=== PATIENT | female | born 1990 | race American Indian/Alaskan Native ===

== ENCOUNTER 2017-01-26 09:51 | Outpatient (CLI) | payer MEDICAID ==
[2017-01-26] MEDS ORDERED: LACTATED RINGERS 500 ML IV ONE (10:33)
[2017-01-26 10:47] LABS: Bacteria,Urine 1+ /HPF (Negative); Bilirubin,Urine NEG (Negative); Blood,Urine NEG (Negative); Ketones,Urine NEG (Negative); Leukocyte Esterase,Urine LG (Negative); Mucus,Urine 1+ /HPF; Nitrite,Urine NEG (Negative); Urobilinogen,Urine < 2.0 mg/dL (<2.0)
[2017-01-26 10:58] VITALS: BP 110/56
[2017-01-26] MEDS ORDERED: ROCEPHIN IM ONE (12:00)
[2017-01-26] MEDS ORDERED: XYLOCAINE 1% 20 mL INFILTRATI ONE (12:00)
== END 2017-01-26 12:20 | disposition home or self-care (01) ==
LOC: TRG 09:51
PROVIDERS: ATTEND Obstetrics & Gynecology
DX: O47.02 False labor before 37 completed weeks of gestation, second trimester (principal); Z3A.26 26 weeks gestation of pregnancy
CPT/HCPCS: 59025; 81001; J0696

== ENCOUNTER 2017-04-17 23:25 | Outpatient (CLI) | payer MEDICAID | END 2017-04-18 00:50 | disposition home or self-care (01) | LOC: TRG 23:25 | PROVIDERS: ATTEND Obstetrics & Gynecology | DX: O47.1 False labor at or after 37 completed weeks of gestation (principal); Z3A.38 38 weeks gestation of pregnancy ==

== ENCOUNTER 2017-04-29 10:27 | Inpatient (IN) | payer MEDICAID ==
[2017-04-29] MEDS ORDERED: MINERAL OIL PO PRN (10:51)
[2017-04-29] MEDS ORDERED: XYLOCAINE 2% INFILTRATI ONE (10:51)
[2017-04-29] MEDS ORDERED: SUBLIMAZE IV PRN (10:51)
[2017-04-29] MEDS ORDERED: STADOL IV PRN (10:51)
[2017-04-29] MEDS ORDERED: NARCAN 0.4 MG/1 ML IV PRN (10:51)
[2017-04-29] MEDS ORDERED: BRETHINE IVP PRN (10:51)
[2017-04-29] MEDS ORDERED: ePHEDrine SULFATE IV PRN (10:51)
[2017-04-29] MEDS ORDERED: ZOFRAN IV PRN (10:51)
[2017-04-29] MEDS ORDERED: BRETHINE SUB-Q PRN (10:51)
[2017-04-29] MEDS ORDERED: PITOCin/NS 30 UNIT/500ML 30 UNITS/500 ML BAG IV SCH (11:00)
[2017-04-29] MEDS ORDERED: LACTATED RINGERS 1,000 ML IV SCH (11:00)
[2017-04-29] MEDS ORDERED: PITOCin/NS 20 UNIT/1000ML DRIP 20 UNITS/1,000 ML BAG IV SCH (11:00)
[2017-04-29 12:24] LABS: Hematocrit 33.1 % (30.3-42.9); Hemoglobin 10.3 gm/dl (10.1-14.3); Mean Corpuscular HGB Conc 31 % (30-34); Platelet Count 325 K/mm3 (140-440); Red Blood Count 4.86 M/mm3 (3.65-5.03); Red Cell Distribution Width 16.7 % (13.2-15.2)
[2017-04-29 12:27] LABS: Mean Corpuscular Hemoglobin 21 pg (28-32); Mean Corpuscular Volume 68 fl (79-97)
--- NOTE | 2017-04-29 14:49 | History and Physical Report ---
History of Present Illness Date of examination: 04/29/17 Date of admission: 04/29/17 10:27 History of present illness: 26 yo LMP EDC 05/01/17 @ 39.5 weeks gestation presented to office this am 4.5cm with LOF-clear that occurred prior to visit. Also reported decreased FM. Denied VB. First trimester entry into care at 6 weeks gestation. course complicated by morbid obesity with early GCT of 118 and APA comang't. for same. She is GBS negative. There is a prior history of SIDS 2012-3 months post delivery. 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: abnormal PAP smear Family/Genetic History: none Social history: no significant social history, single - Obstetrical History Expected Date of Delivery: 05/01/17 Actual Gestation: 39 Week(s) 5 Day(s) : 3 Para: 0 Hx # Term Pregnancies: 1 (SIDS ) Number of Pregnancies: 0 Spontaneous Abortions: 1 Induced : 0 Number of Living Children: 0 Medications and Allergies Allergies Allergy/AdvReac Type Severity Reaction Status Date / Time No Known Allergies Allergy Verified 07/06/15 09:43 Home Medications Medication Instructions Recorded Confirmed Last Taken Type Ibuprofen [Motrin 800 MG tab] 800 mg PO Q8HR PRN #30 tablet 12/03/15 04/29/17 Unknown Rx Nitrofurantoin [place]/M-[place]ryst 100 mg PO Q12HR #14 capsule 01/26/17 04/29/17 Unknown Rx [Macrobid CAP] Multivitamin Tablet 1 tab PO QDAY 04/29/17 04/29/17 04/28/17 21:00 History 1 Active Meds: Active Medications Butorphanol Tartrate (Stadol) 2 mg IV Q2H PRN PRN Reason: Pain , Severe (7-10) Ephedrine Sulfate (Ephedrine Sulfate) 10 mg IV Q2M PRN PRN Reason: Hypotension Fentanyl (Sublimaze) 100 mcg IV Q2H PRN PRN Reason: Labor Pain Lactated Ringer's (Lactated Ringers) 1,000 mls @ 125 mls/hr IV DIRECT JOSE Last Admin: 04/29/17 12:31 Dose: 125 mls/hr Oxytocin/Sodium Chloride (Pitocin/Ns 20 Unit/1000ml Drip) 20 units in 1,000 mls @ 125 mls/hr IV DIRECT JOSE Oxytocin/Sodium Chloride (Pitocin/Ns 30 Unit/500ml) 30 units in 500 mls @ 4 mls /hr IV TITR JOSE PRN Reason: Protocol Last Titration: 04/29/17 13:15 Dose: 16 mls/hr, 16 mls/hr Mineral Oil (Mineral Oil) 30 ml PO QHS PRN PRN Reason: Constipation Naloxone HCl (Narcan 0.4 Mg/1 Ml) 0.1 mg IV Q2MIN PRN PRN Reason: Res Rate </= 8 or 02 SAT < 92% Ondansetron HCl (Zofran) 4 mg IV Q8H PRN PRN Reason: Nausea And Vomiting Terbutaline Sulfate (Brethine) 0.25 mg SUB-Q ONCE PRN PRN Reason: Hyperstimulation/Hypertonicity Terbutaline Sulfate (Brethine) 0.25 mg IVP ONCE PRN PRN Reason: Hyperstimulation/Hypertonicity Review of Systems All systems: negative (decreased mov't) Genitourinary: leakage of fluid, contractions, no genital sores - Vital Signs Vital signs: Vital Signs Pulse BP 107 H 142/61 04/29/17 11:23 04/29/17 11:23 Temp Pulse Resp BP Pulse Ox 97.4 F L 107 H 18 142/61 04/29/17 11:29 04/29/17 11:29 04/29/17 11:29 04/29/17 11:29 - Physical Exam Genitourinary (Female): Positive: normal external genitalia, normal perenium. Negative: perineal/vulvar lesions - Obstetrical FHR: category 1 Uterine Contraction Monitor Mode: External Cervical Dilatation: 4.5 Cervical Effacement Percentage: 70 station: -2 Uterine Contraction Duration: 2 Uterine Contraction Pattern: Regular Uterine Tone Measurement Phase: Resting Uterine Contraction Intensity: Strong/Firm Results Result Diagrams: 04/29/17 12:09 Abnormal lab results 04/29/17 Range/Units 12:09 MCV 68 L (79-97) fl MCH 21 L (28-32) pg RDW 16.7 H (13.2-15.2) % All other labs normal. Assessment and Plan A: IUP at term Active Labor History of previous SIDS P: Pitocin augmentation
--- NOTE | 2017-04-29 14:57 | Procedure Note ---
OB Delivery Note - Delivery Date of Delivery: 04/29/17 (7-14oz female @ [id number]) Surgeon: NISHANT SHAH Estimated blood loss: 100cc - Vaginal Delivery presentation: vertex Delivery position: OA Intrapartum events: none Delivery induction: none Delivery augmentation: pitocin Delivery monitor: external FHT, external uterine Route of delivery: Delivery placenta: spontaneous Delivery cord: 3 umbilical vessels Episiotomy: none Delivery laceration: 1st degree (left labia, hemostatic) Anesthesia: none - A at 1 minute: 7 at 5 minutes: 9 Gender: Female (Sitting up for epidural progressed rapidly from 6cm to C/ C/+2 in 10 minutes. Pushed for viable female in OA position over intact perineum. Poor maternal pushing efforts after delivery of head. Patient placed in [place] and shoulders delivered within one minute with active manged pushing. Stimulated to cry and placed skin to skin. Spont. placenta. Bleeding scant. Pitocin infusing. Laceration as noted.)
[2017-04-29] MEDS ORDERED: DULCOLAX PR PRN (14:58)
[2017-04-29] MEDS ORDERED: TUCKS PAD TP PRN (14:58)
[2017-04-29] MEDS ORDERED: MILK OF MAGNESIA PO PRN (14:58)
[2017-04-29] MEDS ORDERED: PHENERGAN PO PRN (14:58)
[2017-04-29] MEDS ORDERED: TYLENOL PO PRN (14:58)
[2017-04-29] MEDS ORDERED: NORCO 5/325 PO PRN (14:58)
[2017-04-29] MEDS ORDERED: BENADRYL PO PRN (14:58)
[2017-04-29] MEDS ORDERED: PHENERGAN PR PRN (14:58)
[2017-04-29] MEDS ORDERED: SODIUM CHLORIDE FLUSH SYRINGE 10 ML IV SCH (15:00)
[2017-04-29] MEDS: MOTRIN PO SCH (18:06)
[2017-04-29] MEDS: FEOSOL PO SCH (21:36)
[2017-04-30] MEDS: MOTRIN PO SCH ×5 (00:20→23:21)
[2017-04-30 05:50] LABS: Hematocrit 28.4 % (30.3-42.9); Hemoglobin 8.9 gm/dl (10.1-14.3)
[2017-04-30] MEDS: FEOSOL PO SCH ×2 (09:52→23:20)
[2017-04-30] MEDS ORDERED: PRENATAL VITAMIN PO SCH (10:00)
--- NOTE | 2017-04-30 11:35 | Progress Note ---
Assessment and Plan A; PPD #1 s/p at term; asymptomatic anemia P: Routine care. Discharge tomorrow Subjective - Subjective Date of service: 04/30/17 Principal diagnosis: s/p at term, Asymptomatic anemia Interval history: No overnight events Patient reports: appetite normal, voiding normally, pain well controlled, ambulating normally, no nauseated : doing well Objective - Vital Signs Latest vital signs: Vital Signs Temp Pulse Resp BP Pulse Ox 04/30/17 08:42 98.5 F 95 H 22 109/54 100 04/30/17 00:00 98.0 F 82 18 137/76 04/29/17 20:15 98.0 F 94 H 18 126/77 04/29/17 16:25 98.5 F 94 H 18 132/71 100 04/29/17 15:40 97.5 F L Intake and Output 04/29/17 04/30/17 04/30/17 22:59 06:59 14:59 Intake Total 720 480 120 Output Total 1400 Balance -680 480 120 Intake: Oral 720 480 120 Output: Urine 1400 Void 1400 Other: Total, Intake Amount 240 240 120 Total, Output Amount 700 # Voids Void 1 1 1 - Exam Breasts: Present: deferred Cardiovascular: Present: Regular rate Lungs: Present: Clear to auscultation Abdomen: Present: soft Uterus: Present: fundal height below umbilicus Extremities: Present: normal - Labs Labs: Abnormal lab results 04/29/17 04/30/17 Range/Units 12:09 05:36 Hgb 8.9 L (10.1-14.3) gm/dl Hct 28.4 L (30.3-42.9) % MCV 68 L (79-97) fl MCH 21 L (28-32) pg RDW 16.7 H (13.2-15.2) %
--- NOTE | 2017-04-30 14:08 | Discharge Summary ---
Providers - Providers Date of Admission: 04/29/17 10:27 Date of discharge: 05/01/17 Attending physician: RYLEE JACKMAN MD Primary care physician: GARRICK RAMIREZ Hospitalization Reason for admission: rupture of membranes Delivery: Procedure details: Please see delivery note. Episiotomy: none Laceration: none Other procedures: none complications: none Discharge diagnosis: IUP at term delivered [place] baby: female Hospital course: Patient was admitted with spontaneous rupture of membranes and went on to deliver a female via spontaneous vaginal delivery. Her course uncomplicated and she met discharge criteria on day #2. She will follow-up in the office with Melissa Quiroga in 4 weeks. Condition at discharge: Stable Disposition: DC-01 TO HOME OR SELFCARE - Discharge Diagnoses (1) Morbid obesity Status: Acute (2) Term of female Status: Acute Plan - Discharge Medications Prescriptions: Ferrous Sulfate [Feosol 325 MG tab] 325 mg PO BID #60 tablet HYDROcodone/APAP 5-325 [[place] 5/325] 1 each PO Q6HR PRN #30 tablet PRN Reason: Pain Ibuprofen [Motrin] 600 mg PO Q6H PRN #30 tablet PRN Reason: Pain - Provider Discharge Summary Activity: routine, no sex for 6 weeks, no heavy lifting 4 weeks, no strenuous exercise Diet: routine Instructions: routine Additional instructions: [] Smoking cessation referral if applicable(refer to patient education folder for contact #) [] Refer to [facility] Booklet Call your doctor immediately for: * Fever > 100.5 * Heavy vaginal bleeding ( >1 pad per hour) * Severe persistent headache * Shortness of breath * Reddened, hot, painful area to leg or breast * Drainage or odor from incision. * Keep incision clean and dry at all times and follow doctor's instructions regarding bathing/showering - Follow up plan Follow up: MELISSA QUIROGA CNM [Advanced Practice Nurse] - 06/05/17 (please call for appt )
[2017-05-01] MEDS: MOTRIN PO SCH (05:41)
[2017-05-01 09:30] VITALS: BP 125/74
== END 2017-05-01 11:10 | disposition home or self-care (01) | DRG 775 ==
LOC: LD 10:27 → OB 16:24
PROVIDERS: ADMIT Obstetrics & Gynecology; ATTEND Obstetrics & Gynecology
PROC: 10E0XZZ Delivery of Products of Conception, External Approach (ICD-10-PCS; principal; 2017-04-29)
PROC: 0HQ9XZZ Repair Perineum Skin, External Approach (ICD-10-PCS; 2017-04-29)
DX: O99.214 Obesity complicating childbirth (principal); E66.01 Morbid (severe) obesity due to excess calories; O75.89 Other specified complications of labor and delivery; Z3A.39 39 weeks gestation of pregnancy; Z37.0 Single live birth; Z68.42 Body mass index [BMI] 45.0-49.9, adult; O99.03 Anemia complicating the puerperium; D64.9 Anemia, unspecified; O70.0 First degree perineal laceration during delivery
CPT/HCPCS: 36415; 85014; 85018; 85027; 86592; 86850; 86900; 86901; J2590; J7120

== ENCOUNTER 2021-08-23 10:36 | Outpatient (CLI) | payer MEDICAID ==
[2021-08-23 11:15] VITALS: BP 119/75
== END 2021-08-23 13:34 | disposition home or self-care (01) ==
LOC: TRG 10:36 → APU 10:38 → TRG 13:34
PROVIDERS: ATTEND Obstetrics & Gynecology
DX: Z34.93 Encounter for supervision of normal pregnancy, unspecified, third trimester (principal); Z3A.38 38 weeks gestation of pregnancy
CPT/HCPCS: 36415; 84112

== ENCOUNTER 2021-10-10 18:42 | Emergency (ER) | payer MEDICAID | END 2021-10-10 20:00 | disposition left against medical advice (07) | LOC: ED 18:42 | DX: Z00.00 Encounter for general adult medical examination without abnormal findings (principal); Z53.21 Procedure and treatment not carried out due to patient leaving prior to being seen by health care provider ==

== ENCOUNTER 2021-10-15 15:03 | Observation (INO) | payer MEDICAID ==
[2021-10-15 18:15] LABS: Alanine Aminotransferase 10 units/L (7-56); Albumin 3.6 g/dL (3.9-5); BUN/Creatinine Ratio 12; Blood Urea Nitrogen 12 mg/dL (7-17); Calcium 8.6 mg/dL (8.4-10.2); Hemolysis Index 3
[2021-10-15 18:17] LABS: Hemoglobin 11.2 gm/dl (10.1-14.3); Mean Corpuscular HGB Conc 31 % (30-34); Mean Corpuscular Volume 71 fl (79-97); Platelet Count 334 K/mm3 (140-440); Red Blood Count 5.09 M/mm3 (3.65-5.03); Red Cell Distribution Width 15.3 % (13.2-15.2)
[2021-10-15 18:26] LABS: Bilirubin,Urine NEG (Negative); Blood,Urine LG (Negative); Color,Urine Yellow (Yellow); Mucus,Urine FEW /HPF
--- NOTE | 2021-10-15 18:36 | Emergency Department Report ---
ED General Adult HPI - General Chief complaint: High BP Stated complaint: HIGH BP Time Seen by Provider: 10/15/21 16:41 Source: patient Mode of arrival: Ambulatory Limitations: No Limitations - History of Present Illness Initial comments: 31-year-old female with a past medical history of obesity and anemia presents to the hospital with complaints of elevated blood pressure. Patient was at an urgent care center for treatment for a cyst when she was told that her blood pressure was elevated she had protein in her urine sample. Patient's BP at the doctor's office was 158/101 and 151/99. Patient is 1 month with status post vaginal delivery September 10. She denies history of preeclampsia or hypertension during . She does not complain of headache, blurry vision, chest pain, shortness of breath or current leg edema. She complains of persistent paresthesias to her second, third, and fourth fingers of her left hand that has been constant since she delivered. No other neurodeficits reported. DISPLAY COORDINATOR doctor: women's [employer]PER[employer] - Related Data Home Medications Medication Instructions Recorded Confirmed Last Taken Multivitamin Tablet 1 tab PO QDAY 04/29/17 09/11/21 09/09/21 10:00 Previous Rx's Medication Instructions Recorded Last Taken Type Ferrous Sulfate [Feosol 325 MG tab] 325 mg PO BID #60 tablet 04/30/17 09/09/21 10:00 Rx Ferrous Sulfate [Feosol 325 MG tab] 325 mg PO BID tablet 09/12/21 Unknown Rx Ibuprofen [Motrin 800 MG tab] 800 mg PO Q8HR #30 tablet 09/12/21 Unknown Rx Allergies Allergy/AdvReac Type Severity Reaction Status Date / Time No Known Allergies Allergy Verified 07/06/15 09:43 ED Review of Systems ROS: Stated complaint: HIGH BP Other details as noted in HPI Comment: All other systems reviewed and negative ED Past Medical Hx - Past Medical History Previous Medical History?: Yes Hx Hypertension: No Hx Congestive Heart Failure: No Hx Diabetes: No Hx Deep Vein Thrombosis: No Hx Renal Disease: No Hx Sickle Cell Disease: No Hx Seizures: No Hx Asthma: No Hx COPD: No Hx HIV: No Additional medical history: ANEMIA - Social History Smoking Status: Former Smoker - Medications Home Medications: Home Medications Medication Instructions Recorded Confirmed Last Taken Type Multivitamin Tablet 1 tab PO QDAY 04/29/17 09/11/21 09/09/21 10:00 History Ferrous Sulfate [Feosol 325 MG tab] 325 mg PO BID #60 tablet 04/30/17 09/11/21 09/09/21 10:00 Rx Ferrous Sulfate [Feosol 325 MG tab] 325 mg PO BID tablet 09/12/21 Unknown Rx Ibuprofen [Motrin 800 MG tab] 800 mg PO Q8HR #30 tablet 09/12/21 Unknown Rx ED Physical Exam - General Limitations: No Limitations - Other Other exam information: General: No acute distress Head: Atraumatic Eyes: normal appearance ENT: Moist mucous membranes Neck: Normal appearance, no midline tenderness Chest: Clear to auscultation bilaterally CV: Regular rate and rhythm Abdomen: Soft, normal bowel sounds, nontender, nondistended, no rebound or guarding Back: Normal inspection Extremity: Normal inspection, full range of motion, no edema, no calf tenderness Neuro: Alert O x 3, no facial asymmetry, speech clear, equal handgrip, foot dorsiflexion, [id number] function intact, no focal weakness, mild numbness to fingertips of second, third, fourth finger of left hand Psych: Appropriate behavior Skin: No rash ED Course Vital Signs 10/15/21 10/15/21 10/15/21 15:12 18:26 18:31 Temperature 98.3 F Pulse Rate 70 Respiratory 16 Rate Blood Pressure 153/96 Blood Pressure 150/87 [Left] O2 Sat by Pulse 99 100 100 Oximetry - Reevaluation(s) Reevaluation #1: 10/15/21 18:35 Current BP 151/97 and 153/96 - Consultations Consultation #1: 10/15/21 18:[address] Lori Wade who is familiar with the patient. States that patient has been noncompliant with her follow-up. Recommends admission to the hospital. She will place orders ED Medical Decision Making - Lab Data Result diagrams: 10/15/21 17:39 10/15/21 17:39 Lab Results 10/15/21 10/15/21 10/15/21 Range/Units 17:39 17:39 17:39 WBC 5.6 (4.5-11.0) K/mm3 RBC 5.09 H (3.65-5.03) M/mm3 Hgb 11.2 (10.1-14.3) gm/dl Hct 36.0 (30.3-42.9) % MCV 71 L (79-97) fl MCH 22 L (28-32) pg MCHC 31 (30-34) % RDW 15.3 H (13.2-15.2) % Plt Count 334 (140-440) K/mm3 Sodium 138 (137-145) mmol/L Potassium 3.9 (3.6-5.0) mmol/L Chloride 103.0 (98-107) mmol/L Carbon Dioxide 25 (22-30) mmol/L Anion Gap 14 mmol/L BUN 12 (7-17) mg/dL Creatinine 1.0 (0.6-1.2) mg/dL Estimated GFR > 60 ml/min BUN/Creatinine Ratio 12 % Glucose 106 H (65-100) mg/dL Calcium 8.6 (8.4-10.2) mg/dL Total Bilirubin 0.20 (0.1-1.2) mg/dL AST 15 (5-40) units/L ALT 10 (7-56) units/L Alkaline Phosphatase 104 (35-129) units/L Total Protein 6.4 (6.3-8.2) g/dL Albumin 3.6 L (3.9-5) g/dL Albumin/Globulin Ratio 1.3 % HCG, Quant < 2 (0-4) mIU/mL Urine Color (Yellow) Urine Turbidity (Clear) Urine pH (5.0-7.0) Ur Specific [place] (1.003-1.030) Urine Protein (Negative) mg/dL Urine Glucose (UA) (Negative) mg/dL Urine Ketones (Negative) mg/dL Urine Blood (Negative) Urine Nitrite (Negative) Urine Bilirubin (Negative) Urine Urobilinogen (<2.0) mg/dL Ur Leukocyte Esterase (Negative) Urine WBC (Auto) (0.0-6.0) /HPF Urine RBC (Auto) (0.0-6.0) /HPF U Epithel Cells (Auto) (0-13.0) /HPF Urine Mucus /HPF 10/15/21 Range/Units Unknown WBC (4.5-11.0) K/mm3 RBC (3.65-5.03) M/mm3 Hgb (10.1-14.3) gm/dl Hct (30.3-42.9) % MCV (79-97) fl MCH (28-32) pg MCHC (30-34) % RDW (13.2-15.2) % Plt Count (140-440) K/mm3 Sodium (137-145) mmol/L Potassium (3.6-5.0) mmol/L Chloride (98-107) mmol/L Carbon Dioxide (22-30) mmol/L Anion Gap mmol/L BUN (7-17) mg/dL Creatinine (0.6-1.2) mg/dL Estimated GFR ml/min BUN/Creatinine Ratio % Glucose (65-100) mg/dL Calcium (8.4-10.2) mg/dL Total Bilirubin (0.1-1.2) mg/dL AST (5-40) units/L ALT (7-56) units/L Alkaline Phosphatase (35-129) units/L Total Protein (6.3-8.2) g/dL Albumin (3.9-5) g/dL Albumin/Globulin Ratio % HCG, Quant (0-4) mIU/mL Urine Color Yellow (Yellow) Urine Turbidity Clear (Clear) Urine pH 6.0 (5.0-7.0) Ur Specific [place] 1.019 (1.003-1.030) Urine Protein 30 mg/dl (Negative) mg/dL Urine Glucose (UA) Neg (Negative) mg/dL Urine Ketones Neg (Negative) mg/dL Urine Blood Lg (Negative) Urine Nitrite Neg (Negative) Urine Bilirubin Neg (Negative) Urine Urobilinogen 2.0 (<2.0) mg/dL Ur Leukocyte Esterase Tr (Negative) Urine WBC (Auto) 8.0 H (0.0-6.0) /HPF Urine RBC (Auto) 1.0 (0.0-6.0) /HPF U Epithel Cells (Auto) 11.0 (0-13.0) /HPF Urine Mucus Few /HPF - Medical Decision Making 31-year-old female presents to the hospital hypertension and proteinuria without other signs of preeclampsia. Case discussed with DISPLAY COORDINATOR provider who recommends admission to the hospital for further management and observation. Critical Care Time: No Critical care attestation.: If time is entered above; I have spent that time in minutes in the direct care of this critically ill patient, excluding procedure time. ED Disposition Clinical Impression: Pre-eclampsia, Disposition: 09 ADMITTED INPATIENT Is pt being admited?: No Does the pt Need Aspirin: No Condition: Stable Instructions: Hypertension (ED) Time of Disposition: 18:52
[2021-10-15] MEDS ORDERED: MAGNESIUM SULFATE 4 GM/100 ML BAG IV ONE (19:04)
[2021-10-15] MEDS ORDERED: hydrALAZINE 20 MG/1 ML INJ IV PRN (19:04)
[2021-10-15] MEDS ORDERED: CALCIUM GLUCONATE 1000 MG/10 ML INJ IV PRN (19:04)
[2021-10-15] MEDS ORDERED: IBUPROFEN 800 MG TAB PO PRN (19:07)
[2021-10-15] MEDS ORDERED: MAGNESIUM SULFATE 40GM/1000ML 40 GM/1,000 ML BAG IV SCH (20:00)
[2021-10-16] MEDS: LACTATED RINGERS 1,000 ML IV SCH ×2 (01:13→22:47)
--- NOTE | 2021-10-16 07:41 | History and Physical Report ---
History of Present Illness Date of examination: 10/16/21 Date of admission: 10/15/21 19:01 Chief complaint: My blood pressure is high History of present illness: This patient is a 31-year-old -[place] female 4 para 3-0-1-2 status post spontaneous vaginal delivery on September 11, 2021 who presents with lower extremity edema, headache, and blurred vision. The patient's also reports going to an urgent care for treatment of an axillary abscess and was told that her blood pressure was elevated and that she should proceed to the emergency department. In the emergency department she her blood pressure was found to be elevated and in conjunction with her other complaints the patient was admitted for preeclampsia. Overnight she has received IV magnesium sulfate therapy for seizure prophylaxis. She reports that she was being treated with Bactrim DS twice a day and had dressing changes performed at the urgent care center. She reports having an axillary abscess once before, years ago. She denies fever and chills. Past History Past Medical History: asthma, hematologic disorders (anemia ) Past Surgical History: other (knee surgery) Social history: no significant social history - Obstetrical History : 4 Para: 3 Hx # Term Pregnancies: 3 Number of Pregnancies: 0 Spontaneous Abortions: 1 Induced : 0 Number of Living Children: 2 Medications and Allergies Allergies Allergy/AdvReac Type Severity Reaction Status Date / Time No Known Allergies Allergy Verified 07/06/15 09:43 Home Medications Medication Instructions Recorded Confirmed Last Taken Type Multivitamin Tablet 1 tab PO QDAY 04/29/17 09/11/21 09/09/21 10:00 History Ferrous Sulfate [Feosol 325 MG tab] 325 mg PO BID #60 tablet 04/30/17 09/11/21 09/09/21 10:00 Rx Ferrous Sulfate [Feosol 325 MG tab] 325 mg PO BID tablet 09/12/21 Unknown Rx Ibuprofen [Motrin 800 MG tab] 800 mg PO Q8HR #30 tablet 09/12/21 Unknown Rx Active Meds: Active Medications Calcium Gluconate (Calcium Gluconate 1000 Mg/10 Ml Inj) 1,000 mg IV ONCE PRN PRN Reason: Hypermagnesmia Hydralazine HCl (Hydralazine 20 Mg/1 Ml Inj) 5 mg IV Q30MIN PRN PRN Reason: Hypertension Lactated Ringer's (Lactated Ringers) 1,000 mls @ 125 mls/hr IV DIRECT JOSE Last Admin: 10/16/21 01:13 Dose: 125 mls/hr Magnesium Sulfate (Magnesium Sulfate 40gm/1000ml) 40 gm in 1,000 mls @ 50 mls/hr IV DIRECT JOSE Last Admin: 10/16/21 01:23 Dose: 2 gm/hr, 50 mls/hr Ibuprofen (Ibuprofen 800 Mg Tab) 800 mg PO Q8H PRN PRN Reason: Pain, Mild (1-3) Review of Systems All systems: negative - Vital Signs Vital signs: Vital Signs Temp Pulse Resp BP Pulse Ox 98.3 F 70 16 150/87 99 10/15/21 15:12 10/15/21 15:12 10/15/21 15:12 10/15/21 15:12 10/15/21 15:12 Temp Pulse Resp BP Pulse Ox 97.8 F 65 20 134/88 100 10/16/21 07:09 10/16/21 07:39 10/16/21 07:09 10/16/21 07:39 10/16/21 07:35 - Physical Exam Breasts: Positive: deferred Abdomen: Positive: soft Extremities: Positive: edema (1+) Results Result Diagrams: 10/15/21 17:39 10/15/21 17:39 Abnormal lab results 10/15/21 10/15/21 10/15/21 Range/Units 17:39 17:39 Unknown RBC 5.09 H (3.65-5.03) M/mm3 MCV 71 L (79-97) fl MCH 22 L (28-32) pg RDW 15.3 H (13.2-15.2) % Glucose 106 H (65-100) mg/dL Magnesium (1.7-2.3) mg/dL Albumin 3.6 L (3.9-5) g/dL Urine WBC (Auto) 8.0 H (0.0-6.0) /HPF 10/16/21 Range/Units 02:02 RBC (3.65-5.03) M/mm3 MCV (79-97) fl MCH (28-32) pg RDW (13.2-15.2) % Glucose (65-100) mg/dL Magnesium 4.70 H (1.7-2.3) mg/dL Albumin (3.9-5) g/dL Urine WBC (Auto) (0.0-6.0) /HPF All other labs normal. Assessment and Plan A: Preeclampsia Axillary Abscess P: Admit to labor and delivery for administration of IV magnesium sulfate for seizure prophylaxis Initiate antihypertensives as indicated Continue home medication of Bactrim DS twice daily and Neosporin for axillary abscess Closely monitor clinical status
--- NOTE | 2021-10-16 07:42 | Event Note ---
Date: 10/16/21 After interview for 20 minutes and provider left the room, the patient now complains of chest discomfort and reports that is part of the reason she presented to the ED.
[2021-10-16] MEDS: SULFAMETHOXAZOLE/TRIMETHOPRIM 800/160MG DS TAB PO SCH ×2 (08:35→21:59)
[2021-10-16] MEDS: NEOMY 3.5 MG/BACIT 400 UNITS/POLY B 5000 UNITS/GM OINT PACKET TP SCH ×2 (08:45→20:22)
--- NOTE | 2021-10-16 12:43 | Electrocardiograph Report ---
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
[2021-10-16] MEDS: NIFEdipine XL 30 MG TAB PO SCH (13:23)
--- NOTE | 2021-10-16 13:42 | Event Note ---
Date: 10/16/21 Late entry. On-call physician contacted with magnesium level 6.3. Instruction given to stop magnesium for 2 hours, then repeat magnesium level. Restart magnesium based on repeat value. Pt's BPs remaining in severe range, so Procardia XL 30 mg daily initiated.
[2021-10-17] MEDS ORDERED: WITCH HAZEL/ GLYCERIN PAD TP PRN (03:45)
[2021-10-17] MEDS ORDERED: MAGNESIUM HYDROXIDE (MOM) ORAL LIQD UDC PO PRN (03:45)
[2021-10-17] MEDS ORDERED: diphenhydrAMINE 25 MG CAP PO PRN (03:45)
[2021-10-17] MEDS ORDERED: HYDROcodone/ACETAMINOPHEN 5-325 MG TAB PO PRN (03:45)
[2021-10-17] MEDS ORDERED: ONDANSETRON 4 MG/2 ML INJ IV PRN (03:45)
[2021-10-17] MEDS ORDERED: PROMETHAZINE 25 MG RECT SUPP PR PRN (03:45)
[2021-10-17] MEDS ORDERED: ACETAMINOPHEN 325 MG TAB PO PRN (03:45)
[2021-10-17] MEDS ORDERED: PROMETHAZINE 25 MG TAB PO PRN (03:45)
[2021-10-17] MEDS ORDERED: LANOLIN/ZINC/DIMETHICONE (LANSINOH) 7 GM TP PRN (03:45)
[2021-10-17] MEDS: NEOMY 3.5 MG/BACIT 400 UNITS/POLY B 5000 UNITS/GM OINT PACKET TP SCH ×2 (05:17→11:30)
[2021-10-17] MEDS: NIFEdipine XL 30 MG TAB PO SCH (11:29)
[2021-10-17] MEDS: SULFAMETHOXAZOLE/TRIMETHOPRIM 800/160MG DS TAB PO SCH (11:30)
[2021-10-17 12:04] VITALS: BP 116/68
--- NOTE | 2021-10-17 12:30 | Progress Note ---
Assessment and Plan - Patient Problems (1) Pre-eclampsia, Current Visit: Yes Status: Acute Plan to address problem: Patient clinically improved Discharge home Subjective - Subjective Date of service: 10/17/21 Interval history: The patient is without any significant complaints today. She completed a course of magnesium sulfate therapy. She has remained normotensive Patient reports: appetite normal, voiding normally, pain well controlled Objective - Vital Signs Latest vital signs: Vital Signs Temp Pulse Resp BP BP Pulse Ox Pulse Ox 10/17/21 11:12 98.5 F 69 18 116/68 100 10/17/21 08:27 98 10/17/21 07:23 98.3 F 61 18 109/63 100 10/17/21 05:14 16 10/17/21 03:14 98.4 F 68 18 120/84 100 100 10/17/21 02:58 97 H 98 10/17/21 02:53 64 98 10/17/21 02:48 63 98 10/17/21 02:42 64 98 10/17/21 02:39 62 89/55 10/17/21 02:38 65 99 10/17/21 02:32 66 99 10/17/21 02:28 62 100 10/17/21 02:22 61 98 10/17/21 02:17 59 L 99 10/17/21 02:12 64 98 10/17/21 02:09 69 108/65 10/17/21 02:08 72 99 10/17/21 02:02 63 100 10/17/21 01:57 68 100 10/17/21 01:52 75 100 10/17/21 01:47 79 100 10/17/21 01:42 83 100 10/17/21 01:39 116 H 107/61 10/17/21 01:37 69 98 10/17/21 01:32 68 98 10/17/21 01:27 69 98 10/17/21 01:22 69 98 10/17/21 01:17 69 98 10/17/21 01:12 72 99 10/17/21 01:09 73 104/63 10/17/21 01:07 78 97 10/17/21 01:02 83 98 10/17/21 00:57 70 99 10/17/21 00:52 86 100 10/17/21 00:47 81 98 10/17/21 00:42 79 100 051822 00:39 64 98/59 05/18/22 00:37 67 99 05/1822 00:32 76 99 051822 00:27 69 99 051822 00:22 67 99 051822 00:17 62 100 051822 00:12 61 100 051822 00:09 63 104/75 051822 00:07 67 100 051822 00:02 79 100 051722 23:57 81 100 051722 23:52 82 100 051722 23:47 89 100 051722 23:42 73 100 051722 23:39 74 117/72 051722 23:37 90 100 0517 23:32 64 99 05 23:27 87 100 05 23:22 67 99 05 23:19 18 05 23:17 66 99 05 23:12 71 99 05 23:09 75 108/68 051722 23:07 75 100 0517 23:02 76 100 051722 22:57 75 100 05 22:52 75 100 0522 22:47 79 100 05 22:42 80 100 0522 22:39 72 108/68 0522 22:37 70 100 0522 22:32 81 100 05 22:28 98.4 F 05 22:27 78 100 051722 22:22 78 100 051722 22:19 18 051722 22:17 78 100 051722 22:12 78 100 051722 22:09 74 106/69 051722 22:07 79 100 051722 22:02 84 100 0522 21:57 76 99 051722 21:52 79 100 051722 21:47 75 100 051722 21:42 72 100 051722 21:39 73 113/68 051722 21:37 68 100 051722 21:32 71 99 0517/22 21:27 79 100 05/17/22 21:22 72 100 051722 21:17 74 100 0517 21:12 71 100 05 21:09 71 118/69 05 21:07 70 100 05 21:02 72 100 05 20:57 73 100 051722 20:52 92 H 100 05 20:47 75 100 051722 20:42 90 100 051722 20:39 80 135/83 051722 20:37 87 100 051722 20:32 73 99 051722 20:27 85 100 05 20:22 81 100 05 20:17 73 100 05 20:12 69 100 05 20:09 73 126/73 05 20:07 69 100 05 20:02 75 100 05 19:57 71 100 05 19:52 71 100 05 19:47 69 100 05 19:46 87 93 05 19:42 68 100 05 19:39 64 123/76 05 19:37 63 100 05 19:31 65 99 05 19:26 67 99 05 19:21 81 100 05 19:16 71 100 05 19:11 68 100 05 19:09 68 121/80 05 19:06 68 100 05 19:04 98.6 F 65 127/79 0517 19:01 65 100 0522 18:56 76 100 051722 18:51 66 100 051722 18:45 74 99 051722 18:40 77 100 051722 18:39 65 127/87 051722 18:36 98.4 F 100 05 18:35 71 100 051722 18:30 70 100 051722 18:25 61 100 051722 18:20 71 100 051722 18:15 86 99 051722 18:11 70 94 10/16/21 18:10 56 L 100 10/16/21 18:09 66 117/86 10/16/21 18:05 61 100 10/16/21 18:00 64 100 10/16/21 17:55 68 100 10/16/21 17:50 69 100 10/16/21 17:45 74 100 10/16/21 17:40 66 152/94 100 10/16/21 17:35 79 87 10/16/21 17:34 72 98 10/16/21 17:29 65 100 10/16/21 17:24 63 100 10/16/21 17:19 69 100 10/16/21 17:14 67 100 10/16/21 17:09 65 133/83 100 10/16/21 17:04 66 84 10/16/21 17:01 95 H 0 L 10/16/21 16:59 70 100 10/16/21 16:54 54 L 100 10/16/21 16:53 82 81 L 10/16/21 16:49 65 100 10/16/21 16:44 64 100 10/16/21 16:39 70 133/89 100 10/16/21 16:34 70 100 10/16/21 16:29 61 100 10/16/21 16:24 72 100 10/16/21 16:19 59 L 100 10/16/21 16:16 100 10/16/21 16:14 66 100 10/16/21 16:09 72 139/85 100 10/16/21 16:04 61 99 10/16/21 15:59 66 100 10/16/21 15:58 55 L 132/81 10/16/21 15:54 71 100 10/16/21 15:49 58 L 100 10/16/21 15:44 74 100 10/16/21 15:40 69 182/100 10/16/21 15:39 68 99 10/16/21 15:34 57 L 100 10/16/21 15:29 58 L 100 10/16/21 15:24 63 100 10/16/21 15:19 66 100 10/16/21 15:14 25 L 82 L 10/16/21 15:13 66 100 10/16/21 15:11 71 146/93 10/16/21 15:09 67 143/93 10/16/21 15:08 73 100 10/16/21 15:06 100 10/16/21 15:03 77 87 10/16/21 14:58 81 100 10/16/21 14:53 67 100 10/16/21 14:48 65 100 10/16/21 14:43 59 L 100 10/16/21 14:41 76 93 10/16/21 14:39 56 L 142/89 10/16/21 14:38 65 100 10/16/21 14:33 70 100 10/16/21 14:32 80 73 L 10/16/21 14:28 72 100 10/16/21 14:26 96 H 47 L 10/16/21 14:23 66 100 10/16/21 14:18 64 98 10/16/21 14:13 54 L 100 10/16/21 14:10 59 L 163/84 10/16/21 14:08 63 100 10/16/21 14:03 58 L 100 10/16/21 13:58 61 100 10/16/21 13:54 71 94 10/16/21 13:53 57 L 100 10/16/21 13:48 66 100 10/16/21 13:43 56 L 100 10/16/21 13:39 61 141/92 10/16/21 13:38 62 100 10/16/21 13:33 63 100 10/16/21 13:32 76 60 L 10/16/21 13:28 98.0 F 58 L 100 10/16/21 13:24 60 141/89 10/16/21 13:23 75 100 10/16/21 13:18 65 99 10/16/21 13:13 60 100 10/16/21 13:09 62 149/98 10/16/21 13:08 65 100 10/16/21 13:07 60 145/92 10/16/21 13:03 69 100 10/16/21 12:58 69 100 10/16/21 12:53 62 100 10/16/21 12:50 60 46 L 10/16/21 12:48 54 L 100 10/16/21 12:43 57 L 100 10/16/21 12:40 54 L 167/99 10/16/21 12:38 56 L 100 10/16/21 12:35 66 83 L 10/16/21 12:33 62 100 Intake and Output 10/16/21 10/17/21 10/17/21 22:59 06:59 14:59 Intake Total 300 720 Output Total 1900 1999 Balance -1900 -1700 720 Intake: Oral 300 240 Intake, Free Water 480 Output: Urine 0 1999 Indwelling Catheter 1900 1400 Void 600 Other: Total, Intake Amount 100 120 Total, Output Amount 600 300 # Voids Void 1 - Exam Comments: Dressing is applied to left axilla with active drainage of abscess - Labs Labs: Abnormal lab results 10/16/21 10/16/21 10/16/21 Range/Units 13:25 14:34 20:25 Magnesium 4.40 H 3.90 H 4.40 H (1.7-2.3) mg/dL
--- NOTE | 2021-10-17 12:31 | Discharge Summary ---
Providers - Providers Date of Admission: 10/15/21 19:01 Date of discharge: 10/17/21 Attending physician: GARRICK RAMIREZ Primary care physician: [facility] Hospitalization Reason for admission: other ( preeclampsia) Discharge diagnosis: other ( preeclampsia) Hospital course: The patient was admitted for elevated blood pressures and underwent magnesium sulfate therapy. Her hospital course was also complicated by a left axillary abscess which the patient was seen in acute care and underwent incision and drainage of the area. Condition at discharge: Good Disposition: 01 HOME / SELF CARE / HOMELESS - Discharge Diagnoses (1) Pre-eclampsia, Status: Acute Plan - Provider Discharge Summary Activity: no heavy lifting 4 weeks Diet: routine Instructions: routine Additional instructions: [] Smoking cessation referral if applicable(refer to patient education folder for contact #) [] Refer to [facility]'s [facility] Booklet Call your doctor immediately for: * Fever > 100.5 * Heavy vaginal bleeding ( >1 pad per hour) * Severe persistent headache * Shortness of breath * Reddened, hot, painful area to leg or breast * Drainage or odor from incision. * Keep incision clean and dry at all times and follow doctor's instructions regarding bathing/showering Schedule follow-up at [facility] in 1 week - Follow up plan
== END 2021-10-17 13:08 | disposition home or self-care (01) ==
LOC: ED 15:03 → LD 19:01 → OB 10-17 03:14
PROVIDERS: ADMIT Obstetrics & Gynecology; ATTEND Obstetrics & Gynecology
DX: O14.95 Unspecified pre-eclampsia, complicating the puerperium (principal); L02.419 Cutaneous abscess of limb, unspecified; J45.909 Unspecified asthma, uncomplicated; H53.8 Other visual disturbances; D64.9 Anemia, unspecified; R51.9 Headache, unspecified; Z79.899 Other long term (current) drug therapy; Z98.890 Other specified postprocedural states; Z87.891 Personal history of nicotine dependence
CPT/HCPCS: 36415; 80053; 81001; 83735; 84702; 85027; 87641; 93005; 96365; 96366; 99284; G0378; J3475; J7120